=== PATIENT | female | born 1980 | race Caucasian/White ===

== ENCOUNTER → 2020-03-11 | Outpatient (CLI) | payer OTHER ==
[~2020-03-11] MED LIST: FIORICET TAB1 EA PO
== END ==
LOC: KOH-I 13:30
DX: R07.9 Chest pain, unspecified (principal)
CPT/HCPCS: 71046; 73562

== ENCOUNTER → 2020-03-20 | Outpatient (CLI) | payer BC, OTHER | LOC: KOH-I 08:23 | DX: R07.9 Chest pain, unspecified (principal) | CPT/HCPCS: 71250 ==

== ENCOUNTER → 2021-11-08 | Outpatient (CLI) | payer BC, OTHER ==
[2021-11-08 07:54] LABS: HEMOGLOBIN 12.5 gm/dl (12.3-15.3); RED BLOOD COUNT 4.55 M/UL (4.00-5.10); WHITE BLOOD COUNT 7.2 K/UL (4.5-11.0)
[2021-11-08 08:22] LABS: BUN/CREATININE RATIO 18 (0-10)
[2021-11-09 11:10] LABS: VITAMIN D, 25-HYDROXY 18.9 ng/mL (30.0-100.0)
[2021-11-09 12:10] LABS: INSULIN 32.1 uIU/mL (2.6-24.9)
== END ==
LOC: LAB 06:43
PROVIDERS: Internal Medicine
DX: D64.9 Anemia, unspecified (principal); E78.5 Hyperlipidemia, unspecified; R73.01 Impaired fasting glucose; D51.8 Other vitamin B12 deficiency anemias; E55.9 Vitamin D deficiency, unspecified; Z79.899 Other long term (current) drug therapy
CPT/HCPCS: 36415; 80053; 80061; 82607; 82728; 82746; 83036; 83540; 83550; 84439; 84443; 85025